=== PATIENT | female | born 1940 ===

== ENCOUNTER 2024-01-05 10:36 | Day surgery (SDC) | payer MEDICARE, MEDICAID, SELFPAY ==
[2024-01-05 11:02] VITALS: BP 180/70; PULSE 64; RESP 16; TEMP 36.6; O2SAT 99
--- NOTE | 2024-01-05 11:22 | W.ANESPRE ---
General Info Date of Service Date Performed: 01/05/24 Height: 4 ft Weight: 51.9 kg Body Mass Index (BMI): 34.9 Surgical Procedure: Operation Date: 01/05/24 13:40 Proposed Procedure Side Surgeon p Cataract Extraction with IOL Implant Left Vinicius Rahman MD Meds Allergies and Home Medications Allergies Allergy/AdvReac Type Severity Reaction Status Date / Time Penicillins Allergy Mild Other (See Verified 01/05/24 11:27 Comment) Home Medication ?Medication ?Instructions ?Recorded lisinopril 40 mg tablet 40 mg PO DAILY 01/02/24 metformin 500 mg tablet 500 mg PO BID 01/02/24 simvastatin 40 mg tablet 40 mg PO DAILY 01/02/24 Current Visit Medications: Current Medications Generic Name Dose Route Start Last Admin Trade Name Freq PRN Reason Stop Dose Admin Acetaminophen 1,000 mg 01/05/24 06:00 Acetaminophen 500 Mg Tab PO 02/04/24 05:59 Q4H PRN PRN Balanced Salt Solution 500 ml 01/05/24 06:00 Balanced Salt Soln.-Plus 500 Ml Bag OP 02/04/24 05:59 [facility] Miscellaneous Medication 0 ml 01/05/24 06:00 Prednisolone 1%, Moxifloxacin 0.5%, Bromfenac 0.09% 5.6ml Btl OS 02/04/24 05:59 [facility] Miscellaneous Medication 0 ml 01/05/24 06:00 Tropicam./Phenyleph. 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 Mixed hyperlipidemia Lesion of ulnar nerve Left ear impacted cerumen Knee pain Hypertensive disorder Hemorrhoids GEORGE (generalized anxiety disorder) Arthropathy Surgical History Surgical History History of section History of cholecystectomy History of carpal tunnel release Tobacco Smoking/Tobacco Use Status: Never Alcohol Alcohol Intake: never Substance Use Substance use: Never Substance use type: does not use Vital Signs and Lab Results Vital Signs Most Recent Vital Signs in EMR: Temp Pulse Resp BP Pulse Ox 36.6 C 64 16 180/70 H 99 01/05/24 11:02 01/05/24 11:02 01/05/24 11:02 01/05/24 11:02 01/05/24 11:02 Lab Results Blood Type / Crossmatch: No Data to Display Complete Blood Count: No Data to Display Complete Metabolic Panel: No Data to Display Liver Function Panel: No Data to Display Coagulation Panel: No Data to Display Cardiac Panel: No Data to Display Arterial Blood Gas: No Data to Display Venous Blood Gas: No Data to Display Pancreas Panel: No Data to Display Thyroid Panel: No Data to Display Infectious Disease: No Data to Display Blood Cultures: No Data to Display Toxicology Panel: No Data to Display Anesthesia Assessment and Plan Anesthesia History Personal History: No History of Anesthesia Complications Family History: No Family History of Anesthesia Complications Exercise Tolerance Exercise Tolerance: Metabolic Equivalents<4 Cardiac & Pulmonary Exam Cardiac Exam: Normal S1/S2 Heart Sounds Pulmonary Exam: Clear Bilateral Breath Sounds Implantable Cardiac Device Does patient have a Pacemaker or an ICD?: No Airway Exam Known Difficult Airway: No Mallampati Class: 4 Mouth Opening: Narrow (< 3cm) Thyromental Distance: Less than 3 cm Neck Range of Motion: Limited ROM Neck Circumference: Normal Teeth Condition: Removable Dentures/Plates Upper and Edentulous ASA Classification ASA Score: ASA 3 Emergency Case?: No NPO Status NPO Status: NPO Clears >2 hours, Solids >8 hours Anesthesia Plan Resuscitation Status: Full Code Anesthesia Technique: MAC Anesthesia Airway Planned: Natural Airway Monitors Used: Standard Monitors Preoperative Comments:: 83 yo female for cataract removal. Sig PMHx: HTN (lisinopril), DM2 (metformin), anxiety. Frequent GERD at night. unable to go up stairs.
[2024-01-05 11:29] VITALS: BMI 34.9
[2024-01-05] MEDS: Povidone-Iodine Ophth 30 ML BTL (12:20)
[2024-01-05] MEDS: Tetracaine 0.5% 4 ML BTL OS (12:20)
[2024-01-05] MEDS: Lidocaine 1% Pres-Free 5 ML VIAL (12:28)
[2024-01-05] MEDS: Balanced Salt Soln.-PLUS 500 ML BAG OP (12:28)
[2024-01-05] MEDS: Duovisc Viscoelastic System EACH 1 EACH (12:28)
[2024-01-05] MEDS: Prednisolone 1%, Moxifloxacin 0.5%, Bromfenac 0.09% 5.6ML BTL OS (12:43)
[2024-01-05 12:48] VITALS: BP 174/65; PULSE 55; RESP 16; TEMP 36.6; O2SAT 100
--- NOTE | 2024-01-05 12:49 | ROE_ITS ---
Date of service: 01/05/24 Time of Service: 12:49 Operative Note Operative Note DATE OF PROCEDURE: 01/05/24 POST-OP DIAGNOSIS: same PROCEDURE: Cataract extraction using phacoemulsification with intraocular lens implant, left eye SURGEON: Vinicius Rahman ANESTHESIA TYPE: Local By Surgeon and MAC Refer to Anesthesia Record PATHOLOGY: none sent COMPLICATIONS: None Patient was transported to: same day Patient's condition: stable Implants: Louis Clareon [id number] Indications: Progressive decreased vision due to cataract, left eye Procedure Description: CATARACT SURGERY OPERATIVE REPORT PREOPERATIVE DIAGNOSIS: Nuclear cataract, left eye POSTOPERATIVE DIAGNOSIS: Same OPERATION: Cataract extraction using phacoemulsification with posterior chamber intraocular lens implant, left eye. IOL: IOL Dispatcher Chief Oil/Model: Louis Clareon [id number] IOL Power: + 24.5 diopters IOL Serial Number: [id number] Optic Diameter: 6.0mm Haptic/Overall Diameter: 13.0mm PHACO INFO: Louis Jeeranurion Vision System with OZil and Active Fluidics Cumulative Dispersed Energy (CDE): 15.37 seconds SURGEON: Vinicius Rahman MD, TISHA ANESTHESIA: Monitored Anesthesia Care (MAC), with local sub-tenon's anesthetic infiltration COMPLICATIONS: None SPECIMENS: None INDICATIONS FOR PROCEDURE: The patient is an 83-year-old lady with history of diminished visual acuity in both eyes secondary to the development of nuclear cataracts. She is significantly symptomatic that she desires cataract surgery and attempt to improve and maximize her vision. Her cataracts have led to some degree of myopia, and she is able to read without glasses. She would like to continue to be able to read without glasses postoperatively. Postoperative refractive target is -1.75 in the left eye with a monofocal plus implant. See office notes for detailed information. PROCEDURE: The correct surgical eye was identified and marked as the left eye and the pupil was dilated in the preoperative area using mydriatics and cycloplegics. The dilated pupil size was 7.0 mm. The patient elected to proceed without oral sedation. The patient was brought to the operating room where cardiopulmonary monitoring was instituted and surgical time-out was performed, confirming the correct operative eye and IOL power. Topical anesthesia was administered and ophthalmic povidone-iodine 5% was instilled into the conjunctival fornices. The tata-ocular area was prepped with Betadine 10% solution and draped in the usual sterile fashion for intraocular surgery, including an aperture drape. A Tegaderm transparent film dressing was cut in half and used to cover the lashes and lid margins. Care was taken to sequester the lashes and lid margins under the Tegaderm dressing. A lid speculum was placed between the lids of the operative eye and the Louis Lux[employer] Revalia operating microscope was maneuvered into position. Pradeep scissors were then used to make a conjunctival buttonhole approximately 6mm posterior to the limbus in the inferonasal quadrant. Blunt dissection was carried out to expose bare sclera, and a blunt-tipped sub-tenon?s anesthesia cannula was introduced and passed posteriorly along the globe where non- preserved plain lidocaine was injected into posterior sub-Tenon?s space. A sideport knife was used to make a paracentesis port. Intraocular phenylephrine/lidocaine was injected into the anterior chamber. The anterior chamber was then filled with viscoelastic. A keratome knife was used construct a two-plane clear corneal tunnel extending 2.0mm into clear cornea. A flap was raised on the anterior capsule and capsulorhexis forceps were used to complete a continuous curvilinear capsulorhexis of 5.0 mm. The capsule was noted to be quite thin with some generalized zonular laxity. Balanced salt solution was then used to perform cortical cleaving hydrodis section and nuclear hydrodelineation until the lens could be freely rotated within the capsular bag. The lens nucleus was then disassembled and removed within the capsular bag and iris plane using phacoemulsification. Residual cortical material was removed using the irrigation/aspiration handpiece. The posterior capsule was carefully polished to remove as much residual lens epithelial cells as safely possible. The capsular bag was then inflated and the anterior chamber deepened with viscoelastic. The lens implant described above was inserted into the capsular bag using the Louis Autonome Injector. A Kuglen hook was used to dial the IOL into position. Residual viscoelastic was then removed first from posterior to the IOL, then from the anterior chamber using the I/A handpiece. The lens implant was noted to center nicely within the capsular bag. The incisions were stromally hydrated, and the anterior chamber was reformed using BSS. Then 0.5cc of moxifloxacin 1.0mg/ml were injected into the capsular bag and anterior chamber. The incisions were checked with a Weck spear and found to be secure. Several drops of ophthalmic povidone-iodine 5% were then applied to the eye followed by two drops of combination steroid/NSAID/antibiotic solution. The drapes were removed and a clear plastic protective eye shield was placed over the eye. The patient was then returned to [facility] in stable condition.
--- NOTE | 2024-01-05 12:49 | W.PM.DSUDISC ---
Date of service: 01/05/24 Time of Service: 12:49 Discharge Plan Disposition Patient Disposition: Home Discharge Details Attending Provider: Vinicius Rahman Home Meds and New Rx's Prescriptions: No Action lisinopril 40 mg tablet 40 mg PO DAILY metformin 500 mg tablet 500 mg PO BID simvastatin 40 mg tablet 40 mg PO DAILY Discharge Instructions Stand Alone Forms: [facility] Post-Op Cataract, Kasey Mota ([facility]) Discharge Orders Discharge Orders: Discharge Order (Routine); Ordered 01/05/24 Ordered By: Vinicius Rahman DS: Diagnosis Discharge Diagnosis (1) Nuclear age-related cataract, left eye: Status: Resolved
--- NOTE | 2024-01-05 13:34 | W.ANESPOSTOP ---
Postoperative Evaluation Date, Time and Location Date Performed: 01/05/24 Time Performed: 12:48 Patient Location: Day Surgery Unit Vital Signs Most Recent Imported Vital Signs: Most Recent Vital Signs Temp Pulse Resp BP Pulse Ox 36.6 C 55 L 16 174/65 H 100 01/05/24 12:48 01/05/24 12:48 01/05/24 12:48 01/05/24 12:48 01/05/24 12:48 Pain Score Most Recent Pain Score: Most Recent Pain Score Pain Level 0 01/05/24 12:48 Assessment Mental Status: Awake (Alert & Oriented to Patient Baseline) Airway and Respiratory Function: Patent airway with normal (patient baseline) respiratory exam Cardiovascular Function: Hemodynamically Stable Hydration Status: Adequately Hydrated Nausea & Vomiting: No Nausea or Vomiting Pain: Pt. Denies Any Pain Peripheral Nerve Block: Other (Local by Dr. Rahman)
== END 2024-01-05 13:05 | disposition home or self-care (01) ==
LOC: SUR 10:36
PROVIDERS: Visit Provider Ophthalmology
PROC: (CPT 66984; principal; 2024-01-05 13:30)
DX: H25.12 Age-related nuclear cataract, left eye (principal)
CPT/HCPCS: 66984; 00123; V2632; J2003